=== PATIENT | male | born 1975 ===

== ENCOUNTER 2023-01-15 09:13 | Emergency (ER) | payer OTHER, MEDICAID, SELFPAY ==
[2023-01-15 09:19] VITALS: BP 121/83; PULSE 91; RESP 16; TEMP 36.7; O2SAT 96; BMI 30.7
--- NOTE | 2023-01-15 09:29 | ED_ITS ---
HPI - Extremity Problem General Chief complaint: Extremity Problem,Nontraumatic Stated complaint: [facility] sent for blood clots Time Seen by Provider: 01/15/23 09:23 Source: patient Mode of arrival: Family Vehicle History of Present Illness HPI Narrative: 47-year-old male with history of chronic bilateral lower extremity edema varicose veins presents with complaint of left calf pain redness and lump for several months which he states over the last 1-2 months has been slowly increasing with redness which has been spreading and unless uncomfortable. Patient states he presented today because it is increasingly uncomfortable. Patient denies any fevers. Has had chest pain in the past, no shortness of breath. Denies any nausea no vomiting, no diarrhea or constipation. No new urinary symptoms. Patient states both of his legs chronically swell that is not new for him but the redness on his left leg has been slowly worsening. He states he does have a history of varicose veins. He is never had any blood clots or DVTs. He does not inject into his skin. Patient states no prescription medications. Denies any surgeries. No known drug allergies. No tobacco, occasional alcohol, no recreational drugs or IV drugs. Patient was sen t from walk-in clinic. Related Data Previous Rx's Medication Instructions Recorded aspirin 325 mg tablet 325 mg PO DAILY #30 tabs 01/15/23 clindamycin HCl 300 mg capsule 300 mg PO QID 5 days #20 caps 01/15/23 Allergies Allergy/AdvReac Type Severity Reaction Status Date / Time No Known Drug Allergies Allergy Unverified 01/15/23 08:51 Review of Systems Review of Systems ROS Unobtainable: All systems reviewed & are unremarkable except as noted in HPI and below Patient History Social History Smoking Status: Never smoker Smoking Status: Never smoker alcohol intake frequency: holidays/special occasions only Substance Use Type: does not use Exam Narrative Exam Narrative: GENERAL: Alert and oriented x three, HEENT: Head normocephalic, atraumatic, EOMI, pupils reactive, face symmetric, moist mucous membranes NECK: Supple, full range of motion CARDIOVASCULAR: Regular rate and rhythm without murmurs, rubs or gallops. RESPIRATORY: Breath sounds equal bilaterally, no wheezes rales or rhonchi. ABDOMEN: Soft, nontender. Normoactive bowel sounds all 4 quadrants. No guarding or rebound, rigidity, no mass : No CVA tenderness EXTREMITIES: Normal range of motion, no clubbing. Neurovascularly intact. Patient has localized erythema over the left calf with some corded area of fullness. Patient does have some warmth, no fluctuance. No palpable abscess. Erythema does track down slightly towards the medial malleolus. Very mildly tender. Patient has equal swelling bilateral lower extremities. 2+ pulse, normal sensation cap refill less than 2 seconds in all 5 toes. NEUROLOGICAL: Cranial nerves II through XII grossly intact. Moving all extremities SKIN: Warm, dry, no petechiae, no rashes or lesions. Initial Vital Signs Initial Vital Signs: Vital Signs Temperature 98.0 F 01/15/23 09:19 Pulse Rate 91 H 01/15/23 09:19 Respiratory Rate 16 01/15/23 09:19 Blood Pressure 121/83 01/15/23 09:19 Pulse Oximetry 96 01/15/23 09:19 Oxygen Delivery Method Room Air 01/15/23 09:19 Course Orders Ordered: ED Orders 01/15/23 09:33 US perip venous low extrem lt Stat Vital Signs Vital signs: Vital Signs - 8 hr 01/15/23 09:19 Temperature 98.0 F Pulse Rate 91 H Respiratory Rate 16 Blood Pressure 121/83 Pulse Oximetry 96 Oxygen Delivery Method Room Air MDM - Extremity (Nontraumatic) Imaging Data US - DVT: Radiologist's Impression: [address] [address] Ultrasound Report Signed Patient: Sang Flores MR#: [id number] : 1975 Acct:[id number] Age/Sex: 47 / M Date of Service: 01/15/23 Loc: ED Accession Number: [id number] Procedure: US perip venous low extrem lt Ordering Provider: Natalie Castro D.O. PROCEDURE: US PERIP VENOUS LOW EXTREM LT INDICATIONS: CALF REDNESS AND SWELLING X 2 MONTHS TECHNIQUE: Real-time imaging, as well as color and pulse Doppler interrogation, were performed of the lower extremity deep veins from the inguinal ligament to the popliteal fossa, with documentation of the visualized calf veins. COMPARISON: None. FINDINGS: The common femoral, femoral, popliteal, and the visualized calf veins are normally compressible, and free of intraluminal thrombus. Color and pulse Doppler demonstrate normal phasic intraluminal flow. There is normal augmentation response to distal compression maneuver. At the area of palpable abnormality, there is a superficial thrombosis seen within the calf, measuring 3.5 cm in length. IMPRESSION: No findings of lower extremity deep venous thrombosis. Superficial calf venous thrombosis noted. Dictated by: Tico Marie M.D. on 01/15/2023 at 9:19 Approved by: Tico Marie M.D. on 01/15/2023 at 9:20 [facility] Narrative Medical decision making narrative: 47-year-old male presents with complaint of persistent redness swelling and palpable cord in his left calf. History of varices ultrasound confirms superficial thrombosis at 3.5 cm. Reviewed if greater than 4 cm or different locations or deeper would treat with stronger anticoagulants but at this time I would treat with aspirin this patient has had persistent symptoms for several months and not improving, NSAIDs we will give dose of oral antibiotic for potential infection. Discussed with patient for warm compresses and needs repeat imaging in the next several weeks to make sure it is resolving. Patient is agreeable. Discussed return precautions all questions answered. Discharge Plan Departure Patient Disposition: Home Clinical Impression: Acute superficial venous thrombosis of left lower extremity Instructions: DI for Superficial Thrombophlebitis Activity Restrictions/Additional Instructions: Follow up for recheck and repeat ultrasound in the next several weeks to make sure the clot has resolved and is not increasing in size or spreading. If your blood clot became much larger or moved to the deeper vessels in your leg he would need stronger blood thinners. You have a superficial thrombosis in the calf at 3.5 cm in length the deep blood vessels in her legs are without DVT. Take aspirin 325 mg once daily x4 weeks. Take oral antibiotic until completed. Prescription printed. Use warm compresses to the affected area. May also be helpful to elevate your legs and use compression socks or stockings on the affected side. Please return for increasing redness, swelling or pain, fevers, new chest pain or shortness of breath, lightheadedness or passing out or other new or concer jacqueline changes. Prescriptions: New aspirin 325 mg tablet 325 mg PO DAILY Qty: 30 0RF clindamycin HCl 300 mg capsule 300 mg PO QID 5 Days Qty: 20 0RF Referrals: Miscellaneous,DoctorMD [Primary Care Provider] - Stand Alone Forms: Patient Portal/API
--- NOTE | 2023-01-15 09:33 | DI.US.S_ITS ---
PROCEDURE: US PERIPH VENOUS LOW EXTREM LT INDICATIONS: CALF REDNESS AND SWELLING X 2 MONTHS TECHNIQUE: Real-time imaging, as well as color and pulse Doppler interrogation, were performed of the lower extremity deep veins from the inguinal ligament to the popliteal fossa, with documentation of the visualized calf veins. COMPARISON: None. FINDINGS: The common femoral, femoral, popliteal, and the visualized calf veins are normally compressible, and free of intraluminal thrombus. Color and pulse Doppler demonstrate normal phasic intraluminal flow. There is normal augmentation response to distal compression maneuver. At the area of palpable abnormality, there is a superficial thrombosis seen within the calf, measuring 3.5 cm in length. IMPRESSION: No findings of lower extremity deep venous thrombosis. Superficial calf venous thrombosis noted. Dictated by: Tico Marie M.D. on 01/15/2023 at 9:19 Approved by: Tico Marie M.D. on 01/15/2023 at 9:20
[2023-01-15 10:52] VITALS: PULSE 72
== END 2023-01-15 11:02 | disposition home or self-care (01) ==
PROVIDERS: Emergency Provider Emergency Medicine
DX: I82.812 Embolism and thrombosis of superficial veins of left lower extremity (principal)
CPT/HCPCS: 93971; 99283

== ENCOUNTER 2023-02-07 14:41 | Emergency (ER) | payer OTHER, MEDICAID, SELFPAY ==
[2023-02-07] VITALS (8 sets, daily range): BP systolic 108–134; BP diastolic 64–79; PULSE 66–90; RESP 10–23; TEMP 36.6; O2SAT 91–96; BMI 29.5
--- NOTE | 2023-02-07 14:51 | DI.RAD.S_ITS ---
PROCEDURE: XR CHEST 1V INDICATIONS: chest pain TECHNIQUE: One view of the chest was acquired. COMPARISON: [facility], , CHEST 2 VIEW, 10/08/2008, 15:25. FINDINGS: Surgical changes and devices: None. Lungs and pleura: Lungs are clear. No pleural effusions or pneumothorax. Mediastinum: Mediastinal contours appear normal. Heart size is normal. Bones and chest wall: No suspicious bony lesions. Overlying soft tissues appear unremarkable. IMPRESSION: No acute process. Dictated by: Mason Thompson M.D. on 02/07/2023 at 15:20 Approved by: Mason Thompson M.D. on 02/07/2023 at 15:20
[2023-02-07 15:21] LABS: Add Manual Diff / Slide Review NO; Basophils Absolute Auto 100 /uL (0-100); Basophils Percent Auto 0.8 % (0-2); Eosinophils Absolute Auto 200 /uL (0-450); Eosinophils Percent Auto 2.7 % (2-4); Hematocrit 42.2 % (41-53); Hemoglobin 14.6 g/dL (13.5-17.5); Lymphocytes Absolute Auto 1600 /uL (1100-4500); Mean Corpuscular HGB Conc 34.6 % (30-36); Mean Corpuscular Hemoglobin 29.9 PG (26-34); Mean Corpuscular Volume 86.3 fL (80-100); Monocytes Absolute Auto 700 /uL (0-900); Monocytes Percent Auto 10.8 % (3-14); Neutrophils Absolute Auto 4000 /uL (1500-7000); Neutrophils Percent Auto 61.7 % (50-75); Platelet Count 210 X10^3/uL (150-400); Red Blood Cell Count 4.89 X10^6/uL (4.5-5.9); Red Cell Distribution Width 13.2 % (11.6-14.8); White Blood Cell Count 6.5 X10^3/uL (4.5-11.0)
[2023-02-07 15:25] LABS: Prothrombin Time 11.4 SECONDS (9.4-12.5)
[2023-02-07 15:28] LABS: PTT Partial Thromboplastin Tim 31 SECONDS (25.1-36.5)
[2023-02-07 15:38] LABS: Alanine Aminotransferase 57 IU/L (<50); Albumin 4.3 g/dL (3.5-5.0); Albumin Globulin Ratio 1.4 (1.0-2.8); Alkaline Phosphatase 77 U/L (38-126); Aspartate Aminotransferase 40 IU/L (17-59); BUN Creatinine Ratio 13.8 (6-22); Bilirubin Total 0.5 mg/dL (0.2-1.3); Blood Urea Nitrogen 13 mg/dL (9-20); Calcium 9.5 mg/dL (8.4-10.2); Carbon Dioxide 26 mmol/L (22-32); Chloride 104 mmol/L (98-107); Creatine Kinase 118 U/L (55-170); Estimated Glomerular Filt Rate > 60 mL/min (>60); Globulin 3.1 g/dL (1.7-4.1); Glucose 102 mg/dL (70-100); HEMOLYSIS < 15 (0-50); Lipase 144 U/L (23-300); Sodium 139 mmol/L (137-145); Total Protein 7.4 g/dL (6.3-8.2)
[2023-02-07 16:10] LABS: Troponin I < 0.012 ng/mL (0.01-0.034)
--- NOTE | 2023-02-07 16:12 | ED.CHESTPAIN ---
HPI - Chest Pain General Chief Complaint: Chest Pain Stated Complaint: Blood clot Lleg spreading Time Seen by Provider: 02/07/23 15:22 Source: patient Mode of arrival: Ambulatory Limitations: no limitations History of Present Illness HPI narrative: Patient is a 47-year-old male with recent diagnosis superficial thrombosis 01/15/2023. He was started on NSAIDs and aspirin. He reports that he was started on antibiotics clindamycin for some erythema. He says that the redness improved things started looking better. However with the last week or so he feels like there is more bumps his leg and the redness has returned. He is concerned that clot has gotten bigger. He also reports that he has pain every time he takes a deep breath. He does have a history of pleurisy he feels like kind of like see. He really denies any shortness of breath or palpitations. His chest discomfort and pain is not any worse position. He has been taking aspirin has not really helped with his chest discomfort. 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 He denies any productive cough no nausea vomiting or abdominal pain no shortness of breath with exertion no orthopnea. Related Data Previous Rx's Medication Instructions Recorded aspirin 325 mg tablet 325 mg PO DAILY #30 tabs 01/15/23 aspirin 325 mg capsule 325 mg PO DAILY #60 caps 02/07/23 cephalexin 500 mg capsule 500 mg PO TID #21 caps 02/07/23 Allergies Allergy/AdvReac Type Severity Reaction Status Date / Time No Known Drug Allergies Allergy Unverified 01/15/23 08:51 Patient History Social History Smoking Status: Never smoker Smoking Status: Never smoker alcohol intake frequency: holidays/special occasions only Substance Use Type: does not use Exam Initial Vital Signs Initial Vital Signs: Vital Signs Temperature 98 F 02/07/23 14:47 Pulse Rate 90 02/07/23 14:47 Respiratory Rate 18 02/07/23 14:47 Blood Pressure 134/79 02/07/23 14:47 Pulse Oximetry 95 02/07/23 14:47 Oxygen Delivery Method Room Air 02/07/23 14:47 GENERAL: Alert well-appearing 47 year and in no acute distress. HEENT: Head atraumatic,EOMI, pupils reactive, face symmetric, moist mucous membranes CARDIOVASCULAR: Regular rate and rhythm without murmurs, rubs or gallops. RESPIRATORY: Breath sounds equal bilaterally, no wheezes rales or rhonchi. ABDOMEN: Soft, nontender. Normoactive bowel sounds all 4 quadrants. No guarding or rebound. EXTREMITIES: Normal range of motion, no clubbing or edema. Neurovascularly intact Right leg NEUROLOGICAL: Alert and oriented x4.Normal gait and speech. SKIN: Warm, dry, no laceration, no petechiae, no rashes or lesions. Course Orders Ordered: Discontinued Medications Aspirin (Aspirin 81 Mg Chew Tab) 324 mg PO NOW ONE Stop: 02/07/23 14:52 Last Admin: 02/07/23 16:55 Dose: Not Given Documented By: VINI Ketorolac Tromethamine (Ketorolac 30 Mg/Ml Vial) 15 mg IV NOW ONE Stop: 02/07/23 16:28 Last Admin: 02/07/23 16:51 Dose: 15 mg Documented By: VINI Vital Signs Vital signs: Vital Signs - 8 hr 02/07/23 14:47 02/07/23 15:12 02/07/23 15:14 Temperature 98 F Pulse Rate 90 69 Respiratory Rate 18 Blood Pressure 134/79 108/64 Pulse Oximetry 95 Oxygen Delivery Method Room Air 02/07/23 15:14 02/07/23 15:30 02/07/23 15:30 Temperature Pulse Rate 74 71 Respiratory Rate 17 20 Blood Pressure 108/69 Pulse Oximetry 95 96 Oxygen Delivery Method Room Air 02/07/23 16:00 02/07/23 16:00 02/07/23 16:30 Temperature Pulse Rate 72 Respiratory Rate 12 Blood Pressure 114/79 117/70 Pulse Oximetry 96 Oxygen Delivery Method 02/07/23 16:30 02/07/23 17:00 02/07/23 17:00 Temperature Pulse Rate 70 80 Respiratory Rate 10 L 23 Blood Pressure 116/65 Pulse Oximetry 91 96 Oxygen Delivery Method Room Air 02/07/23 17:30 02/07/23 17:30 Temperature Pulse Rate 66 Respiratory Rate 12 Blood Pressure 113/75 Pulse Oximetry 94 Oxygen Delivery Method MDM - Chest Pain Lab Data 02/07/23 15:10 02/07/23 15:10 Labs: Lab Results 12/14/23 Range/Units 15:10 WBC 6.5 (4.5-11.0) X10^3/uL RBC 4.89 (4.5-5.9) X10^6/uL Hgb 14.6 (13.5-17.5) g/dL Hct 42.2 (41-53) % MCV 86.3 (80-100) fL MCH 29.9 (26-34) PG MCHC 34.6 (30-36) % RDW 13.2 (11.6-14.8) % Plt Count 210 (150-400) X10^3/uL Neut % (Auto) 61.7 (50-75) % Lymph % (Auto) 24.0 L (25-40) % [place] % (Auto) 10.8 (3-14) % Eos % (Auto) 2.7 (2-4) % Baso % (Auto) 0.8 (0-2) % Neut # (Auto) 4000 (2293-5344) /uL Lymph # (Auto) 1600 (1658-5828) /uL [place] # (Auto) 700 (0-900) /uL Eos # (Auto) 200 (0-450) /uL Baso # (Auto) 100 (0-100) /uL PT 11.4 (9.4-12.5) SECONDS INR 1.0 (0.9-1.3) APTT 31 (25.1-36.5) SECONDS D-Dimer 286 (<500) ng/ml Sodium 139 (137-145) mmol/L Potassium 4.0 (3.4-5.1) mmol/L Chloride 104 (98-107) mmol/L Carbon Dioxide 26 (22-32) mmol/L BUN 13 (9-20) mg/dL Creatinine 0.94 (0.66-1.25) mg/dL Estimated GFR > 60 (>60) mL/min BUN/Creatinine Ratio 13.8 (6-22) Glucose 102 H (70-100) mg/dL Calcium 9.5 (8.4-10.2) mg/dL Magnesium 2.3 (1.6-2.3) mg/dL Total Bilirubin 0.5 (0.2-1.3) mg/dL AST 40 (17-59) IU/L ALT 57 H (<50) IU/L Alkaline Phosphatase 77 (38-126) U/L Total Creatine Kinase 118 (55-170) U/L Troponin I < 0.012 (0.01-0.034) ng/mL Total Protein 7.4 (6.3-8.2) g/dL Albumin 4.3 (3.5-5.0) g/dL Globulin 3.1 (1.7-4.1) g/dL Albumin/Globulin Ratio 1.4 (1.0-2.8) Lipase 144 (23-300) U/L Imaging Data US - DVT: Radiologist's Impression: PROCEDURE: US PERIP VENOUS LOW EXTREM LT INDICATIONS: known superficial thrombosis increased redness/pain TECHNIQUE: Real-time imaging, as well as color and pulse Doppler interrogation, were performed of the lower extremity deep veins from the inguinal ligament to the popliteal fossa, with documentation of the visualized calf veins. COMPARISON: [facility], US PERIP VENOUS LOW EXTREM LT, 01/15/2023, 9:42. FINDINGS: The common femoral, femoral, popliteal, and the visualized calf veins are normally compressible, and free of intraluminal thrombus. Color and pulse Doppler demonstrate normal phasic intraluminal flow. There is normal augmentation response to distal compression maneuver. Redemonstration of superficial thrombosis within the calf measuring 3.3 cm length. IMPRESSION: No findings of lower extremity deep venous thrombosis. Redemonstration of superficial venous thrombosis within the calf. Dictated by: Mateus Finch M.D. on 02/07/2023 at 17:14 Chest x-ray: Radiologist's Impression: PROCEDURE: XR CHEST 1V INDICATIONS: chest pain TECHNIQUE: One view of the chest was acquired. COMPARISON: [facility], CHEST 2 VIEW, 10/08/2008, 15:25. FINDINGS: Surgical changes and devices: None. Lungs and pleura: Lungs are clear. No pleural effusions or pneumothorax. Mediastinum: Mediastinal contours appear normal. Heart size is normal. Bones and chest wall: No suspicious bony lesions. Overlying soft tissues appear unremarkable. IMPRESSION: No acute process. Dictated by: Mason Thompson M.D. on 02/07/2023 at 15:20 Approved by: Mason Thompson M.D. on 02/07/2023 at 15:20 ECG Data Interpretation: Normal sinus rhythm rate 84 WI interval 156 QRS [address] changes T-wave inversion noted in V2 V3 no priors MDM Narrative Medical decision making narrative: Patient 47-year-old male presents today with right ear complaints. Including worsening left leg redness and varicose veins. Concern for worsening superficial thrombophlebitis. Previously thrombosis measured 3 cm today ultrasound shows 3.3cm. Recommend continued aspirin and NSAIDs no need for anticoagulation. He is experiencing some chest discomfort sharp pain when breathing but no significant shortness of breath. He has had history of pleurisy this feels similarly. He has no evidence of infection leukocytosis. Not consistent with acute coronary syndrome. EKG and troponin are negative. He is no shortness of breath unlikely to be a pulmonary embolism with a superficial thrombosis. D-dimer is negative he is not tachycardic or hypoxic. I see no need for CTand at this time. Pain is pleuritic breathe. No concern for pericarditis. He is some very mild erythema left leg previously given clindamycin which he says helped. Erythema seems similar to previously described mildly tender it does kind of track to medial malleolus very similar to previous presentation. Seems reasonable to start antibiotic but would do Keflex this time. No true evidence of sepsis or severe infection. Erythema may also just be secondary to thrombophlebitis. Patient wants [facility] paperwork filled out for school. I have referred him to his primary care provider for this. Discharge Plan Departure Patient Disposition: Home Clinical Impression: Superficial vein thrombosis, Cellulitis, Pleurisy Instructions: Pleurisy Activity Restrictions/Additional Instructions: *You have been diagnosed with superficial thrombophlebitis,, cellulitis, pleurisy *What to do: At this time your blood clot is improving in size. You do have a slight infection. He also having some pleurisy. I do recommend repeat ultrasound in 4-6 weeks to ensure blood clot has improved. Please continue to monitor redness hopefully the antibiotics help. *Continue to take medications as directed Continue aspirin 325 mg once daily for 4 weeks Keflex 500 mg 3 times a day for 7 days--> [facility] *Follow up with your primary care provider in 2-3 days or call [phone] *Return to ER if you should have increasing pain redness shortness of breath or any new, worsening or concerning symptoms Prescriptions: New cephalexin 500 mg capsule 500 mg PO TID Qty: 21 0RF aspirin 325 mg capsule 325 mg PO DAILY Qty: 60 0RF No Action aspirin 325 mg tablet 325 mg PO DAILY Qty: 30 0RF Referrals: Miscellaneous,Doctor, MD [Primary Care Provider] - Stand Alone Forms: Patient Portal/API
[2023-02-07 16:26] LABS: Magnesium 2.3 mg/dL (1.6-2.3)
--- NOTE | 2023-02-07 16:36 | DI.US.S_ITS ---
PROCEDURE: US PERIP VENOUS LOW EXTREM LT INDICATIONS: known superficial thrombosis increased redness/pain TECHNIQUE: Real-time imaging, as well as color and pulse Doppler interrogation, were performed of the lower extremity deep veins from the inguinal ligament to the popliteal fossa, with documentation of the visualized calf veins. COMPARISON: [facility], [facility] VENOUS LOW EXTREM LT, 01/15/2023, 9:42. FINDINGS: The common femoral, femoral, popliteal, and the visualized calf veins are normally compressible, and free of intraluminal thrombus. Color and pulse Doppler demonstrate normal phasic intraluminal flow. There is normal augmentation response to distal compression maneuver. Redemonstration of superficial thrombosis within the calf measuring 3.3 cm length. IMPRESSION: No findings of lower extremity deep venous thrombosis. Redemonstration of superficial venous thrombosis within the calf. Dictated by: Mateus Finch M.D. on 02/07/2023 at 17:14 Approved by: Mateus Finch M.D. on 02/07/2023 at 17:14
[2023-02-07 16:37] LABS: D Dimer 286 ng/ml (<500)
[2023-02-07] MEDS: KETOROLAC 30 MG/ML VIAL 15 MG IV (16:51)
== END 2023-02-07 18:11 | disposition home or self-care (01) ==
PROVIDERS: Emergency Provider Emergency Medicine
DX: I82.812 Embolism and thrombosis of superficial veins of left lower extremity (principal); L03.116 Cellulitis of left lower limb; R09.1 Pleurisy
CPT/HCPCS: 36415; 71045; 80053; 82550; 83690; 83735; 84484; 85025; 85379; 85610; 85730; 93005; 93010; 93971; 96374; 99284; J1885